=== PATIENT | male | born 1975 | race African-American/Black ===

== ENCOUNTER 2018-07-22 04:09 | Emergency (ER) | payer SELFPAY ==
[~2018-07-22] VITALS: Ht 180.3 cm; Wt 75.7 kg
[2018-07-22] MEDS ORDERED: AZITHROMYCIN 250 MG TABLET ONE (04:42)
[2018-07-22] MEDS ORDERED: CEFTRIAXONE 1 G VIAL ONE (04:42)
[2018-07-22] MEDS ORDERED: LIDOCAINE HCL 1% 20 ML VIAL ONE (04:43)
[2018-07-22] MEDS ORDERED: AZITHROMYCIN 250 MG TABLET PO ONE (04:45)
[2018-07-22] MEDS ORDERED: CEFTRIAXONE 1 G VIAL IM ONE (04:45)
--- NOTE | 2018-07-22 04:51 | NUR ---
Patient discharged to home in stable conditon. Written and verbal after care instructions given. Patient verbalizes understanding of instructions. PATIENT LEFT WITH STABLE GAIT.
[2018-07-22 04:52] VITALS: BP 122/97
== END 2018-07-22 04:52 | disposition home or self-care (01) ==
LOC: ER 04:12
DX: N34.2 Other urethritis (principal)
CPT/HCPCS: 96372; 99283; J0696; J3490; A4663; Q0144